=== PATIENT | female | born 1995 | race Caucasian/White ===

== ENCOUNTER 2018-06-16 02:26 | Inpatient (IN) ==
[2018-06-16 03:01] LABS: Apearance,Urine CLEAR (Clear); Bilirubin,Urine Negative (Negative); Blood, Urine Moderate mg/dL (Negative); Glucose,Urine (UA) Negative (Negative); Hyaline Casts,Urine 1 /LPF (0-3); Ketones,Urine Negative (Negative); Mucus,Urine Occasional /LPF (Occasional); Nitrite,Urine Negative (Negative); Protein,Urine 100 MG/DL; RBC,Urine 52 /HPF (0-4); Squamous Epithelial Cell,Urine Occasional /HPF (0-10); Urine Color Yellow (Yellow); Urine Specific Gravity 1.017 (1.001-1.035); WBC,Urine 3 /HPF (0-6)
[2018-06-16] MEDS ORDERED: MEPERIDINE 50 MG/1 ML VIAL IV PRN (04:08)
[2018-06-16 04:20] LABS: Basophils % 0.4 % (0.0-0.8); Eosinophils # 0.1 10*3/uL (0.0-0.87); Eosinophils % 0.5 % (0.00-10.9); Hematocrit 35.9 VOL% (35.7-47.0); Hemoglobin 11.6 GM/DL (12.0-16.0); Immature Granulocytes % 0.5 %; Immature Granulocytes Absolute 0.06 #; Lymphocytes % 17.8 % (21.3-54.2); Mean Corpuscular HGB Conc 32.3 GM/DL (32-36); Mean Corpuscular Hemoglobin 29 PG (27-34); Mean Corpuscular Volume 89.1 FL (87-102); Mean Platelet Volume 12.1 FL (9.6-12.0); Monocytes # 0.7 10*3/uL (0.11-0.8); Monocytes % 6.1 % (1.7-12.7); Neutrophils # 8.4 10*3/uL (1.4-7.4); Neutrophils % 74.7 % (38.7-73.9); Platelet Count 148 T/CUMM (130-400); Red Blood Count 4.03 MC/CUMM (3.8-5.5); Red Cell Distribution Width 13.9 % (9.3-17.3); White Blood Count 11.3 T/CUMM (4-12)
[2018-06-16] MEDS: LACTATED RINGERS 1,000 ML IV SCH ×2 (04:36→07:47)
[2018-06-16 04:50] LABS: Albumin 2.8 G/DL (3.4-5.0); Bilirubin,Total 0.6 MG/DL (0.2-1.0); Calcium 8.6 MG/DL (8.5-10.1); Osmolality,Calculated 272.7 MOS/KG (273-304); Potassium 4.1 MMOL/L (3.5-5.1); Total Protein 6.6 G/DL (6.4-8.3)
[2018-06-16] MEDS: ONDANSETRON 4 MG/2 ML VIAL IV PRN ×2 (04:58→10:41)
[2018-06-16] MEDS ORDERED: FAMOTIDINE 20 MG/2 ML VIAL IV ONE (07:00)
[2018-06-16] MEDS ORDERED: CITRIC ACID/SODIUM CITRATE 30 ML UDCUP PO ONE (07:00)
[2018-06-16] MEDS ORDERED: fentaNYL 2 MCG/ROPIV 0.2% EPID 100 ML EPIDURAL SCH (07:00)
[2018-06-16] MEDS ORDERED: OXYTOCIN/LR 20 UNIT/1,000 ML BAG IV SCH (07:00)
[2018-06-16] MEDS ORDERED: ceFAZolin 2,000 MG in PREMIX 1 EACH IV ONE (08:25)
[2018-06-16 09:50] LABS: Apearance,Urine CLEAR (Clear); Bilirubin,Urine Negative (Negative); Blood, Urine Negative (Negative); Glucose,Urine (UA) Negative (Negative); Ketones,Urine Negative (Negative); Mucus,Urine Occasional /LPF (Occasional); Nitrite,Urine Negative (Negative); Protein,Urine 100 MG/DL; RBC,Urine 3 /HPF (0-4); Urine Color Yellow (Yellow); Urine Specific Gravity 1.015 (1.001-1.035); WBC,Urine <1 /HPF (0-6)
[2018-06-16] MEDS ORDERED: METHYLERGONOVINE 0.2 MG/1 ML AMP IM ONE (09:50)
[2018-06-16] MEDS ORDERED: METHYLERGONOVINE 0.2 MG/1 ML AMP ONE (09:53)
[2018-06-16] MEDS ORDERED: ROPIVACAINE 0.5% 30 ML VIAL ONE (10:03)
[2018-06-16] MEDS ORDERED: MORPHINE 10 MG/10 ML VIAL ONE (10:03)
[2018-06-16] MEDS ORDERED: MIDAZOLAM 2 MG/2 ML VIAL ONE (10:03)
[2018-06-16] MEDS ORDERED: PROMETHAZINE 25 MG/1 ML VIAL IM ONE (11:28)
[2018-06-16] MEDS: diphenhydrAMINE 50 MG/1 ML VIAL IV PRN ×2 (16:12→23:05)
[2018-06-16] MEDS: ceFAZolin 1,000 MG in SYRINGE 1 EACH IV SCH (16:18)
[2018-06-16 17:45] LABS: Basophils % 0.2 % (0.0-0.8); Eosinophils % 0.1 % (0.00-10.9); Hematocrit 30.8 VOL% (35.7-47.0); Immature Granulocytes % 0.6 %; Immature Granulocytes Absolute 0.09 #; Lymphocytes # 1.7 10*3/uL (1.4-4.0); Lymphocytes % 10.8 % (21.3-54.2); Mean Corpuscular HGB Conc 32.5 GM/DL (32-36); Mean Corpuscular Hemoglobin 29 PG (27-34); Mean Corpuscular Volume 88.5 FL (87-102); Mean Platelet Volume 11.9 FL (9.6-12.0); Monocytes # 0.9 10*3/uL (0.11-0.8); Monocytes % 5.7 % (1.7-12.7); Neutrophils # 13.3 10*3/uL (1.4-7.4); Neutrophils % 82.6 % (38.7-73.9); Platelet Count 110 T/CUMM (130-400); Red Blood Count 3.48 MC/CUMM (3.8-5.5); Red Cell Distribution Width 14.1 % (9.3-17.3); White Blood Count 16.1 T/CUMM (4-12)
[2018-06-16] MEDS ORDERED: OXYTOCIN/LR 20 UNIT/1,000 ML BAG IV ONE (18:59)
[2018-06-16] MEDS ORDERED: oxyCODONE/ACETAMINOPHEN 5-325 MG TABLET ONE (22:49)
[2018-06-16] MEDS ORDERED: IBUPROFEN 800 MG TABLET ONE (22:49)
[2018-06-16] MEDS: IBUPROFEN 800 MG TABLET PO PRN (23:01)
[2018-06-16] MEDS: oxyCODONE/ACETAMINOPHEN 5-325 MG TABLET PO PRN (23:03)
[2018-06-17] MEDS: ceFAZolin 1,000 MG in SYRINGE 1 EACH IV SCH (00:46)
[2018-06-17] MEDS ORDERED: oxyCODONE/ACETAMINOPHEN 5-325 MG TABLET PO PRN (02:37)
[2018-06-17 06:14] LABS: Basophils # 0.1 10*3/uL (0.0-0.2); Basophils % 0.4 % (0.0-0.8); Eosinophils # 0.1 10*3/uL (0.0-0.87); Eosinophils % 0.5 % (0.00-10.9); Hematocrit 31.3 VOL% (35.7-47.0); Hemoglobin 10.1 GM/DL (12.0-16.0); Immature Granulocytes % 0.5 %; Immature Granulocytes Absolute 0.07 #; Lymphocytes % 21.5 % (21.3-54.2); Mean Corpuscular HGB Conc 32.3 GM/DL (32-36); Mean Corpuscular Hemoglobin 29 PG (27-34); Mean Corpuscular Volume 89.7 FL (87-102); Mean Platelet Volume 11.8 FL (9.6-12.0); Monocytes # 1.1 10*3/uL (0.11-0.8); Monocytes % 7.8 % (1.7-12.7); Neutrophils # 9.8 10*3/uL (1.4-7.4); Neutrophils % 69.3 % (38.7-73.9); Platelet Count 115 T/CUMM (130-400); Red Blood Count 3.49 MC/CUMM (3.8-5.5); Red Cell Distribution Width 14.4 % (9.3-17.3); White Blood Count 14.2 T/CUMM (4-12)
[2018-06-17] MEDS: IBUPROFEN 800 MG TABLET PO PRN ×2 (06:27→21:52)
[2018-06-17] MEDS: diphenhydrAMINE 50 MG/1 ML VIAL IV PRN ×2 (06:29→09:30)
[2018-06-17] MEDS: DOCUSATE SODIUM 100 MG CAPSULE PO SCH ×2 (09:29→21:43)
[2018-06-17] MEDS: MAGNESIUM HYDROXIDE SUSP 30 ML UDCUP PO SCH ×2 (09:30→21:43)
[2018-06-17] MEDS: oxyCODONE/ACETAMINOPHEN 5-325 MG TABLET PO PRN ×2 (15:13→21:51)
[2018-06-17] MEDS: SIMETHICONE CHEW 80 MG TABLET PO PRN ×2 (15:14→21:43)
[2018-06-18 07:37] VITALS: BP 111/66
[2018-06-18] MEDS: DOCUSATE SODIUM 100 MG CAPSULE PO SCH (09:16)
== END 2018-06-18 12:45 | disposition home or self-care (01) | DRG 766 ==
LOC: N.LDOUT 02:26 → N.LD 02:34 → N.OB 14:37
PROVIDERS: ADMIT Obstetrics & Gynecology; ATTEND Obstetrics & Gynecology
PROC: LDCSECT (ICD-10-PCS; 2018-06-16 09:30)